=== PATIENT | female | born 1940 | race Caucasian/White ===

== ENCOUNTER → 2018-01-22 10:57 | Outpatient (CLI) | payer MEDICARE, OTHER, SELFPAY ==
[2018-01-22 11:39] LABS: Hemoglobin 13.5 g/dL (12.0-16.0); Mean Corpuscular HGB Conc 34.7 % (30-36); Mean Corpuscular Hemoglobin 31.2 PG (26-34); Mean Corpuscular Volume 89.9 fL (80-100); Platelet Count 207 X10^3/uL (150-400); Red Blood Cell Count 4.34 X10^6/uL (4.0-5.2); Red Cell Distribution Width 13.7 % (11.6-14.8); White Blood Cell Count 7.7 X10^3/uL (4.5-11.0)
[2018-01-22 11:54] LABS: Hemoglobin A1C% w Est Avg Glu 8.3 % (4.0-6.0)
[2018-01-22 11:55] LABS: Alanine Aminotransferase 31 IU/L (9-52); Albumin 4.2 g/dL (3.5-5.0); Albumin Globulin Ratio 1.1 (1.0-2.8); Alkaline Phosphatase 170 U/L (38-126); Aspartate Aminotransferase 39 IU/L (14-36); BUN Creatinine Ratio 28.9 (6-22); Bilirubin Total 0.8 mg/dL (0.2-1.3); Blood Urea Nitrogen 26 mg/dL (7-17); Carbon Dioxide 27 mmol/L (22-32); Chloride 106 mmol/L (98-107); Cholesterol 159 mg/dL (140-199); Estimated Glomerular Filt Rate > 60.0 mL/min (>60); Globulin 3.8 g/dL (1.7-4.1); Glucose 124 mg/dL (80-110); HDL Cholesterol 31 mg/dL (40-60); HEMOLYSIS < 15 (0-50); LDL Cholesterol Calculated 95 mg/dL (<100); Sodium 145 mmol/L (137-145); Triglycerides 165 mg/dL (35-150)
[2018-01-22 13:00] LABS: Thyroid Stimulating Hormone 6.43 uIU/mL (0.47-4.68)
[2018-01-22 14:03] LABS: Neutrophils Absolute Manual 4928 /uL (3000-5900); Total Cells Counted 100
[2018-01-22 14:05] LABS: RBC Morphology Normal Morphology
== END ==
PROVIDERS: Nurse Practitioner Gerontology; Family Provider Internal Medicine; PCP Internal Medicine; Visit Provider Internal Medicine
DX: E78.00 Pure hypercholesterolemia, unspecified (principal); E11.9 Type 2 diabetes mellitus without complications; E03.9 Hypothyroidism, unspecified; I10 Essential (primary) hypertension; C50.919 Malignant neoplasm of unspecified site of unspecified female breast
CPT/HCPCS: 36415; 80053; 80061; 83036; 84443; 85025

== ENCOUNTER → 2018-01-26 10:05 | Outpatient (CLI) | payer MEDICARE, OTHER, SELFPAY ==
--- NOTE | 2018-01-26 | DI.ECHO.S_ITS ---
[facility] +---------+ : : [address] : [address] : : : : [id number] : : : : Phone: [phone]+ Echocardiogram Report + + :Name: SOCORRO DALEY Study Date: 01/26/2018 Height: 66 in : :[facility] Weight: 212 lb : : Gender: Female BSA: 2.1 m2 : :: 1940 Age: 77 yrs BP: 112/82 mmHg: :Reason For Study: BREAST CANCER : : Performed By: Radha Prieto : :Referring: HERRERA KEITH : + + Interpretation Summary The ejection fraction is estimated to be 60-65%. There are no focal wall motion abnormalities. There is mild to moderate mitral regurgitation. Compared to the prior echo study, there has been no change in the severity of mitral regurgitation. There is mild aortic regurgitation. This is unchanged compared to the previous study. There is mild tricuspid regurgitation. Right ventricular systolic pressure is estimated to be 40 mmHg plus the clinically estimated CVP which cannot be estimated on this exam. Compared to the prior echo exam, there has been an increase in the severity of pulmonary hypertension. Procedure: A two-dimensional transthoracic echocardiogram with color flow and Doppler was performed. The study quality was technically adequate. Comparison is made with the echocardiogram of 10/21/2016. The patient was in sinus bradycardia with heart rates between 48-57 bpm during the exam. Left Ventricle: There is borderline concentric left ventricular hypertrophy. The left ventricle is normal in size. The ejection fraction is estimated to be 60-65%. There are no focal wall motion abnormalities. Right Ventricle: The right ventricle is normal in size and function. Atria: Both atria are normal in size. There is no Doppler evidence for an interatrial shunt. Mitral Valve: There is mild mitral annular calcification. There is a flat closure plane of the the mitral valve leaflets. There is mild to moderate mitral regurgitation. Compared to the prior echo study, there has been no change in the severity of mitral regurgitation. Aortic Valve: The aortic valve is trileaflet. The aortic valve opens well. There is mild aortic regurgitation. This is unchanged compared to the previous study. Tricuspid Valve: The tricuspid valve leaflets are thin and pliable. There is mild tricuspid regurgitation. Right ventricular systolic pressure is estimated to be 40 mmHg plus the clinically estimated CVP which cannot be estimated on this exam. Compared to the prior echo exam, there has been an increase in the severity of pulmonary hypertension. Pulmonic Valve: The pulmonic valve is normal in structure and function. There is a trace or physiologic amount of pulmonic regurgitation. Great Vessels: The aortic root is normal size. The ascending aorta is normal in size. The aortic arch is normal in size. The inferior vena cava was not visualized. Pericardium/ Pleura There is no pericardial effusion. MMode/2D Measurements & Calculations LVIDd: 5.0 cm LVOT diam: 2.0 cm LVIDs: 3.2 cm Ao root diam: 3.2 cm FS: 35.3 % Aortic Jxn: 2.1 cm EPSS: 0.27 cm asc Aorta Diam: 3.3 cm IVSd: 1.1 cm Ao Arch Diam (Prox Trans): 2.8 cm LVPWd: 1.1 cm LV sauceda. diameter/BSA (cm/m^2): 2.4 LV sys. diameter/BSA (cm/m^2): 1.6 LA A2 area: 17.9 cm2 RA long axis: 4.5 cm LA A4 area: 20.5 cm2 RA area: 13.1 cm2 LA length (vol): 4.8 cm RA vol: 32.9 ml LA vol: 65.2 ml RA : 16.1 ml/m2 LA vol index: 31.8 ml/m2 RVD1 (basal): 3.8 cm RVD2 (mid): 2.8 cm TAPSE: 2.5 cm Doppler Measurements & Calculations Ao V2 max: 145.2 cm/sec LVOT Max Ciro: 90.1 cm/sec Ao V2 mean: 103.3 cm/sec LV V1 max P.2 mmHg Ao max P.4 mmHg LV V1 VTI: 21.8 cm Ao mean P.7 mmHg ASHA(I,D): 1.8 cm2 Ao V2 VTI: 39.0 cm ASHA(V,D): 1.9 cm2 sev ratio: 0.56 ASHA indexed to BSA (cm^2/m^2): 0.85 AI P1/2t: 605.5 msec AI dec slope: 217.2 cm/sec2 MV E max ciro: 95.1 cm/sec TR max ciro: 315.9 cm/sec MV A max ciro: 77.8 cm/sec TR max P.9 mmHg MV E/A: 1.2 PA V2 max: 74.6 cm/sec Med Peak E' Ciro: 5.5 cm/sec PA V2 mean: 51.8 cm/sec E/E' med: 17.1 PA mean P.2 mmHg Lat Peak E' Ciro: 7.2 cm/sec PA Accel Time: 0.06 sec E/E' lat: 13.3 E/e' average: 15.2 MV dec time: 0.20 sec MV P1/2t: 56.8 msec MV P1/2t max ciro: 95.2 cm/sec MVA(P12t): 3.9 cm2 Reading Physician:03:15 PM
--- NOTE | 2018-01-26 | DI.RAD.S_ITS ---
This blank DEXA report has been sent in error by the PACS system. The correct and complete report will be forthcoming in 1-2 days. Thank you for your patience and understanding. Dictated by: Anna Brothers MD, PhD on 01/26/2018 at 11:36 Approved by: Anna Brothers MD, PhD on 01/26/2018 at 11:36
== END ==
PROVIDERS: Family Provider Internal Medicine; PCP Internal Medicine; Visit Provider Nurse Practitioner Gerontology
DX: Z79.899 Other long term (current) drug therapy (principal)
CPT/HCPCS: 77080; 93306

== ENCOUNTER 2018-02-04 12:45 | Oncology outpatient (ONC) | payer MEDICARE, OTHER, SELFPAY ==
--- NOTE | 2018-02-04 13:36 | P.PNONC_ITS ---
PN -Subjective Interval history: Diagnosis: 1. Breast cancer, T3 N0 ER positive. Previously treated with neoadjuvant Adriamycin and Cytoxan followed by docetaxel. She had a bilateral mastectomy with pathologic complete response. She also had postoperative chest wall radiation and has been on hormone therapy with anastrozole since 2002. 2. Renal cell carcinoma treated with nephrectomy in 2002. 3. 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 Interval history: The patient is a 77-year-old woman who returns today for follow-up. She is feeling well and has no specific complaints. She denies any new aches or pains. She has not noted any adenopathy. No fevers chills or sweats. No shortness of breath or cough. No GI complaints. She has not noted any changes on the chest wall or axilla. She continues to take anastrozole. She has been on it for about 15 years now. She is not having any hot flashes. She denies any musculoskeletal aches and pains. She would like to continue indefinitely. Her past medical history is otherwise notable for diabetes hypertension hyperlipidemia and hypothyroidism. She also has a history of primary sclerosing cholangitis. She has had some depression of the last couple years following the of her . Her medications include ursodiol, atenolol gabapentin anastrozole Lipitor insulin and levothyroxine Home Medications and Allergies Home Medications Medication Instructions Recorded Confirmed Type anastrozole 1 mg PO QDAY #0 10/24/16 History atorvastatin [Lipitor] 20 mg PO HS #0 10/24/16 History insulin aspart U-100 [Novolog #0 10/24/16 History Flexpen U-100 Insulin] insulin glargine [Lantus U-100 60 u SQ QDAY #0 10/24/16 History Insulin] levothyroxine [Levoxyl] 112 mcg PO #0 10/24/16 History Allergies Allergy/AdvReac Type Severity Reaction Status Date / Time venom-honey bee Allergy Unknown Unverified 08/20/17 13:10 [BEE VENOM (HONEY BEE)] Exam - Constitutional positive no acute distress, positive obese - Routine HEENT Exam Head: Present: normocephalic, atraumatic Eye: Present: EOMI, PERRL. Absent: conjunctival icterus, scleral injection ENT: Present: mucous membranes moist, oropharynx clear - Routine Neck Exam Present: supple. Absent: lymphadenopathy, thyromegaly - Routine Chest/Breast/Axilla Exam Chest wall exam standard: Absent: tenderness, mass Breast: Present: right mastectomy, left mastectomy Axillae: Absent: lymphadenopathy - Routine Respiratory Exam Present: Clear to auscultation bilaterally. Absent: rales, wheezes - Routine Cardiovascular Exam Present: RRR, S1, S2. Absent: murmur - Routine Abdominal Exam Present: soft, normoactive bowel sounds. Absent: tenderness, organomegaly, mass - Routine Extremities Exam Absent: cyanosis, clubbing, edema - Routine Back/Spine Exam Back/Spine: Absent: paraspinal tenderness, vertebral tenderness - Routine Skin Exam Present: intact. Absent: petechiae, rash - Routine Neurological Exam Present: alert, oriented X3 - Routine Psychiatric Exam Present: normal affect, normal thought process Results - Labs A CBC was within normal limits. Metabolic panel showed a normal creatinine at 0.9. Alkaline phosphatase was 170 A AST was slightly elevated at 39. TSH was slightly high at 6.4 in her hemoglobin A1c was 8.3. A DEXA scan showed normal bone density although decreased compared to 2017. Echocardiogram showed a normal ejection fraction. Assessment and Plan (1) Breast cancer Problem details: 77-year-old woman with a history of a breast, kidney and oral cancers. She has about 15 years out from her breast and kidney cancers with no evidence of recurrence. She likewise has no evidence of recurrence of her oral cancer. She will continue to follow with her ENT. With regards to her breast cancer, review data suggesting that 7 years of an AI I was not significantly better than 10 years. We have no data regarding 15 year treatments. Never the less she feels like she is not being harmed by the hormone therapy and would prefer to continue even in the absence of evidence for benefit. She will continue with her anastrozole. She will return to clinic in 1 year for follow- up. Current visit: Yes Status: Acute
== END 2018-02-05 12:00 ==
PROVIDERS: Family Provider Internal Medicine; PCP Internal Medicine
DX: C50.919 Malignant neoplasm of unspecified site of unspecified female breast (principal); Z79.811 Long term (current) use of aromatase inhibitors; Z85.819 Personal history of malignant neoplasm of unspecified site of lip, oral cavity, and pharynx; Z85.528 Personal history of other malignant neoplasm of kidney
CPT/HCPCS: 99214

== ENCOUNTER 2019-04-16 07:24 | Emergency (ER) | payer MEDICARE, OTHER, SELFPAY ==
[2019-04-16 07:25] VITALS: BP 143/75; PULSE 64; RESP 18; TEMP 36.5; O2SAT 97; BMI 35.2
--- NOTE | 2019-04-16 07:31 | DI.RAD.S_ITS ---
PROCEDURE: XR WRIST LT MIN 3V INDICATIONS: Fell, landed on wrist. TECHNIQUE: 4 views of the wrist were acquired. COMPARISON: None. FINDINGS: Bones: No fractures or dislocations but there is moderate to moderately severe degenerative osteoarthritis at the base of the first metacarpal and at the radiocarpal joint. This produces osteophytic spurring the obscured visualization of a nondisplaced fracture. No definite fracture found, however.. No suspicious bony lesions. Scaphoid view: No trauma. Soft tissues: No suspicious soft tissue calcifications. IMPRESSION: No trauma found. Degenerative changes as discussed above. Dictated by: aMrio Dacosta M.D. on 04/16/2019 at 8:22 Approved by: Mario Dacosta M.D. on 04/16/2019 at 8:23
--- NOTE | 2019-04-16 07:58 | DI.RAD.S_ITS ---
PROCEDURE: XR FOREARM RT 2V INDICATIONS: fall/proximal forearm pain TECHNIQUE: 2 views of the forearm were acquired. COMPARISON: [facility], CR, XR WRIST LT MIN 3V, 04/16/2019, 7:55. FINDINGS: Bones: No fractures or dislocations. No suspicious bony lesions. Degenerative osteoarthritis at the radiocarpal joint is moderate to moderately severe but no trauma is found Soft tissues: No suspicious soft tissue calcifications or masses. IMPRESSION: Radiocarpal joint moderate to moderately severe degenerative osteoarthritis but no trauma found. Dictated by: Mario Dacosta M.D. on 04/16/2019 at 8:20 Approved by: Mario Dacosta M.D. on 04/16/2019 at 8:21
--- NOTE | 2019-04-16 08:11 | ED.UPPEXIN ---
HPI - Extremity Injury (Upper) General Chief Complaint: Extremity Injury, Upper Stated Complaint: fell last night,hurt left wrist Time Seen by Provider: 04/16/19 07:42 Source: patient Mode of arrival: Ambulatory Limitations: no limitations History of Present Illness HPI narrative: Patient comes emergency department complaining of left wrist and forearm pain after tripping and falling and landing on her outstretched arm on the pavement yesterday evening. Patient states that she sustained bruises to her right hip and knee, but otherwise, was not injured. She has been able to ambulate on the right lower extremity without difficulty. Patient denies prior history of injury to the left wrist. She states it hurts to move, but should come in right away because she was hoping it is just bruised. She denies neck pain. She states that when she fell, her head hit the ground, mainly making contact with her glasses. She states that she has not had any pain and did not hit her head very hard. She has not noticed any bruising or swelling. no visual changes or neck pain. patient denies rib pain. No back pain. no abdominal pain. No other complaints at this time. Related Data Home Medications Medication Instructions Recorded Confirmed anastrozole 1 mg PO QDAY #0 10/24/16 02/04/18 atorvastatin [Lipitor] 20 mg PO HS #0 10/24/16 02/04/18 insulin aspart U-100 [Novolog #0 10/24/16 Flexpen U-100 Insulin] insulin glargine [Lantus U-100 60 u SQ QDAY #0 10/24/16 Insulin] levothyroxine [Levoxyl] 112 mcg PO DAILY #0 10/24/16 02/04/18 Allergies Allergy/AdvReac Type Severity Reaction Status Date / Time venom-honey bee Allergy Unknown Verified 02/04/18 13:51 [BEE VENOM (HONEY BEE)] Review of Systems Constitutional Constitutional: Denies chills, Denies fatigue, Denies fever(s), Denies frequent falls, Denies lethargy and Denies weakness Eyes Eyes: Denies change in vision, Denies eye discharge, Denies irritation and Denies loss of vision ENT Ears, Nose, Mouth, and Throat: Denies change in voice, Denies dizziness, Denies neck pain, Denies sore throat and Denies throat swelling Cardiovascular Cardiovascular: Denies chest pain, Denies irregular heart rhythm, Denies lightheadedness, Denies palpitations, Denies dyspnea, Denies dyspnea on exertion and Denies orthopnea Respiratory Respiratory: Denies cough, Denies dyspnea, Denies dyspnea on exertion and Denies wheezing Gastrointestinal Gastrointestinal: Denies abdominal pain, Denies change in bowel habits, Denies diarrhea, Denies nausea and Denies vomiting Genitourinary Genitourinary: Denies hematuria, Denies flank pain, Denies urinary incontinence and Denies urinary urgency Musculoskeletal Musculoskeletal: Denies back pain, Denies muscle weakness, Denies neck pain, Denies numbness and Denies tingling Comments: Wrist pain Integumentary/Breasts Skin/Breast: Denies pruritus, Denies erythema, Denies rash and Denies wounds Neurologic Neurologic: Denies behavioral changes, Denies confusion, Denies dizziness, Denies frequent falls, Denies loss of vision, Denies numbness, Denies tingling and Denies weakness Psychiatric Psychiatric: Denies anxiety, Denies behavioral changes, Denies confusion, Denies depression, Denies homicidal ideation and Denies suicidal ideation Endocrine Endocrine: Denies fatigue, Denies flushing and Denies palpitations Hematologic/Lymphatic Hematologic/Lymphatic: Denies easy bruising Allergic/Immunologic Allergic/Immunologic: Denies urticaria, Denies throat swelling and Denies wheezing Patient History Medical History Breast cancer (Acute) Diabetes (Acute) HTN (hypertension) (Acute) Hyperlipidemia (Acute) Hypothyroidism (Acute) Oral cancer (Acute) Renal cell carcinoma (Acute) Surgical History History of nephrectomy (Acute) Social History Smoking Status: Former smoker Smoking Status: Former smoker alcohol intake frequency: holidays/special occasions only Substance Use Type: does not use Exam Initial Vital Signs Initial Vital Signs: Vital Signs Temperature 97.7 F 04/16/19 07:25 Pulse Rate 64 04/16/19 07:25 Respiratory Rate 18 04/16/19 07:25 Blood Pressure 143/75 H 04/16/19 07:25 Pulse Oximetry 97 04/16/19 07:25 Const General: cooperative and well developed Nutritional Appearance: well nourished Orientation: alert, awake, oriented x3 and not confused [facility] Head: normocephalic and atraumatic Ears: external ears normal Nose: external nose normal and No nasal discharge Face and sinus: face symmetric and No dry mucous membranes Mouth: oral mucosae normal and moist mucous membranes Teeth and gingiva: dentition normal Eyes General: appearance normal, both eyes and all related structures Eyelids: eyelids normal Conjunctivae: conjunctivae normal Sclera: sclerae normal Pupils: PERRL EOM: EOM intact bilaterally Neck Neck: normal visual inspection, trachea midline, No lymphadenopathy, No midline deformity and No JVD Lymphatic: No lymphedema Chest Chest: normal inspection of the chest Resp Effort & Inspection: normal respiratory effort, able to speak in complete sentences, no respiratory distress and no use of accessory muscles Auscultation: clear to auscultation bilaterally, no rales, no rhonchi and no wheezes Cardio Rate: regular rate Rhythm: regular rhythm Heart Sounds: no click, no gallops, no murmurs and no rubs Pulses: normal peripheral pulses Back/Spine/Pelvis Back: No CVA tenderness Cervical Spine: cervical ROM normal and No pain with cervical ROM Thoracic/Lumbar Spine: thoracic and lumbar spine normal to inspection Skin General: no rashes or lesions noted, No jaundice and No petechiae Other: Contusion right knee. Neuro General: alert, oriented x3, gait normal and no focal motor deficits Speech: speech normal Extrem General: full ROM, no clubbing, cyanosis or edema, no pedal edema and no calf tenderness Psych Appearance: well kempt Mental Status: mental status grossly normal Attitude: cooperative Thought Content: normal and suicidality Judgment: judgment good Course Course Course Narrative: Patient was worked up with x-rays of the left wrist and forearm, which were found to be negative by Radiology reading. She was placed in a Velcro wrist splint. We discussed that she may use [id number] ibuprofen and Tylenol as needed for discomfort. We have discussed home management of symptoms, as well as the usual indications for return. Orders Ordered: ED Orders 04/16/19 07:31 XR wrist LT min 3V Stat 04/16/19 07:58 XR forearm LT 2V Stat Vital Signs Vital signs: Vital Signs - 8 hr 04/16/19 07:25 Temperature 97.7 F Pulse Rate 64 Respiratory Rate 18 Blood Pressure 143/75 H Pulse Oximetry 97 MDM - Extremity Injury (Upper) Medical Records Attestation: I reviewed the patient's medical records. Imaging Data Forearm x-ray: Radiologist's impression: PROCEDURE: XR FOREARM RT 2V INDICATIONS: fall/proximal forearm pain TECHNIQUE: 2 views of the forearm were acquired. COMPARISON: [facility], , XR WRIST LT MIN 3V, 04/16/2019, 7:55. FINDINGS: Bones: No fractures or dislocations. No suspicious bony lesions. Degenerative osteoarthritis at the radiocarpal joint is moderate to moderately severe but no trauma is found Soft tissues: No suspicious soft tissue calcifications or masses. IMPRESSION: Radiocarpal joint moderate to moderately severe degenerative osteoarthritis but no trauma found. Dictated by: Mario Dacosta M.D. on 04/16/2019 at 8:20 Approved by: Mario Dacosta M.D. on 04/16/2019 at 8:21 Wrist x-ray: Radiologist's impression: PROCEDURE: XR WRIST LT MIN 3V INDICATIONS: Fell, landed on wrist. TECHNIQUE: 4 views of the wrist were acquired. COMPARISON: None. FINDINGS: Bones: No fractures or dislocations but there is moderate to moderately severe degenerative osteoarthritis at the base of the first metacarpal and at the radiocarpal joint. This produces osteophytic spurring the obscured visualization of a nondisplaced fracture. No definite fracture found, however.. No suspicious bony lesions. Scaphoid view: No trauma. Soft tissues: No suspicious soft tissue calcifications. IMPRESSION: No trauma found. Degenerative changes as discussed above. Dictated by: Mario Dacosta M.D. on 04/16/2019 at 8:22 Approved by: Mario Dacosta M.D. on 04/16/2019 at 8:23 Discharge Plan Departure Patient Disposition: Home Clinical Impression: Sprain and strain of wrist Instructions: DI for Wrist Sprain Activity Restrictions/Additional Instructions: Your x-rays were negative--you did not break your arm. You may wear the Velcro splint, as needed, until your wrist is feeling better. You may take ibuprofen and/or Tylenol for the discomfort. Prescriptions: No Action anastrozole 1 MG tablet 1 mg PO QDAY Qty: 0 RF: 0 atorvastatin [Lipitor] 20 MG tablet 20 mg PO HS Qty: 0 RF: 0 insulin glargine [Lantus U-100 Insulin] 100 UNIT/1 ML solution 60 u SQ QDAY Qty: 0 RF: 0 levothyroxine [Levoxyl] 112 MCG tablet 112 mcg PO DAILY Qty: 0 RF: 0 insulin aspart U-100 [Novolog Flexpen U-100 Insulin] 100 UNIT/1 ML insulin pen Qty: 0 RF: 0 Referrals: Tristan Esposito MD [Primary Care Provider] -
[2019-04-16 08:43] VITALS: BP 130/70; PULSE 60; RESP 16; O2SAT 98
== END 2019-04-16 08:43 | disposition home or self-care (01) ==
PROVIDERS: Emergency Provider Emergency Medicine; Family Provider Internal Medicine; PCP Internal Medicine
DX: S63.502A Unspecified sprain of left wrist, initial encounter (principal); S66.912A Strain of unspecified muscle, fascia and tendon at wrist and hand level, left hand, initial encounter; S59.912A Unspecified injury of left forearm, initial encounter; W01.0XXA Fall on same level from slipping, tripping and stumbling without subsequent striking against object, initial encounter
CPT/HCPCS: 29260; 73090; 73110; 99282; 99283

== ENCOUNTER → 2019-10-07 15:54 | Outpatient (CLI) | payer MEDICARE, OTHER, SELFPAY ==
[2019-10-07 17:24] LABS: Hemoglobin A1C% w Est Avg Glu 7.4 % (4.0-6.0)
== END ==
PROVIDERS: Family Provider Internal Medicine; PCP Internal Medicine; Referring Provider Internal Medicine; Visit Provider Internal Medicine
DX: E11.9 Type 2 diabetes mellitus without complications (principal)
CPT/HCPCS: 36415; 83036

== ENCOUNTER → 2020-06-07 08:18 | Outpatient (CLI) | payer MEDICARE, OTHER, SELFPAY ==
[2020-06-07] MEDS: COVID-19 VACC #1, MRNA(MOD) 100 MCG/0.5 ML VIAL IM (08:28)
== END ==
PROVIDERS: Family Provider Internal Medicine; PCP Internal Medicine; Visit Provider Internal Medicine
DX: Z23 Encounter for immunization (principal)
CPT/HCPCS: 0011A; 91301

== ENCOUNTER → 2020-07-05 08:19 | Outpatient (CLI) | payer MEDICARE, OTHER, SELFPAY ==
[2020-07-05] MEDS: COVID-19 VACC #2, MRNA(MOD) 100 MCG/0.5 ML VIAL IM (08:28)
== END ==
PROVIDERS: Family Provider Internal Medicine; PCP Internal Medicine; Visit Provider Internal Medicine
DX: Z23 Encounter for immunization (principal)
CPT/HCPCS: 0012A; 91301

== ENCOUNTER → 2021-03-29 12:12 | Outpatient (CLI) | payer MEDICARE, OTHER, SELFPAY ==
[2021-03-29 12:46] LABS: COVID19 -Nasal RAPID Negative (Negative)
== END ==
PROVIDERS: Family Provider Internal Medicine; PCP Internal Medicine; Visit Provider Physician Assistant
DX: Z20.822 Contact with and (suspected) exposure to COVID-19 (principal)
CPT/HCPCS: 87635

== ENCOUNTER → 2021-09-12 10:07 | Outpatient (CLI) | payer MEDICARE, OTHER, SELFPAY ==
[2021-09-12 11:38] LABS: Hematocrit 38.2 % (36-46); Hemoglobin 12.8 g/dL (12.0-16.0); Mean Corpuscular HGB Conc 33.6 % (30-36); Mean Corpuscular Hemoglobin 30.5 PG (26-34); Mean Corpuscular Volume 90.9 fL (80-100); Platelet Count 190 X10^3/uL (150-400); Red Cell Distribution Width 14.3 % (11.6-14.8); White Blood Cell Count 8.4 X10^3/uL (4.5-11.0)
[2021-09-12 11:50] LABS: Hemoglobin A1C% w Est Avg Glu 10.4 % (4.0-6.0)
[2021-09-12 12:10] LABS: Alanine Aminotransferase 25 IU/L (<35); Albumin 4.3 g/dL (3.5-5.0); Albumin Globulin Ratio 1.1 (1.0-2.8); Alkaline Phosphatase 175 U/L (38-126); Aspartate Aminotransferase 39 IU/L (14-36); BUN Creatinine Ratio 22.4 (6-22); Bilirubin Total 0.6 mg/dL (0.2-1.3); Blood Urea Nitrogen 32 mg/dL (7-17); Calcium 8.9 mg/dL (8.4-10.2); Carbon Dioxide 27 mmol/L (22-32); Chloride 103 mmol/L (98-107); Cholesterol 175 mg/dL (140-199); Estimated Glomerular Filt Rate 37 mL/min (>60); Globulin 3.9 g/dL (1.7-4.1); Glucose 224 mg/dL (80-110); HDL Cholesterol 31 mg/dL (40-60); HEMOLYSIS < 15 (0-50); LDL Cholesterol Calculated 96 mg/dL (<100); Potassium 4.5 mmol/L (3.4-5.1); Sodium 138 mmol/L (137-145); Total Protein 8.2 g/dL (6.3-8.2); Triglycerides 239 mg/dL (35-150)
[2021-09-12 12:37] LABS: TSH w/ Reflex to FT4 9.29 uIU/mL (0.47-4.68)
[2021-09-12 13:07] LABS: Free T4, Direct Thyroxine 1.27 ng/dL (0.78-2.19)
== END ==
PROVIDERS: Family Provider Internal Medicine; PCP Internal Medicine; Referring Provider Internal Medicine; Visit Provider Internal Medicine
DX: E03.9 Hypothyroidism, unspecified (principal); E11.42 Type 2 diabetes mellitus with diabetic polyneuropathy; E78.2 Mixed hyperlipidemia; I10 Essential (primary) hypertension
CPT/HCPCS: 36415; 80053; 80061; 83036; 84439; 84443; 85027

== ENCOUNTER → 2021-09-13 15:28 | Outpatient (CLI) | payer MEDICARE, OTHER, SELFPAY ==
[2021-09-13 19:08] LABS: Creatinine Urine Random 110.8 mg/dL; Microalbumi Creatinin Ratio Ur 50.5 ug/mg CR (<30); Microalbumin Urine Random 5.6 mg/dL (0-1.6)
== END ==
PROVIDERS: Family Provider Internal Medicine; PCP Internal Medicine; Referring Provider Internal Medicine; Visit Provider Internal Medicine
DX: E03.9 Hypothyroidism, unspecified (principal); E78.2 Mixed hyperlipidemia; I10 Essential (primary) hypertension; E11.42 Type 2 diabetes mellitus with diabetic polyneuropathy
CPT/HCPCS: 82043; 82570

== ENCOUNTER → 2022-04-02 09:34 | Outpatient (CLI) | payer MEDICARE, OTHER, SELFPAY ==
--- NOTE | 2022-04-16 17:10 | DIAB.MNT ---
Initial Diabetes Medical Nutrition Therapy Assessment Name: Martha Calabrese Date: 04/02/22 Time: [id number] Dx: Type II Diabetes Provider: Vaibhav Martha presents for initial visit regarding T2DM. Endorses PMH of DM for 15-20 years. FH of DM with her mother. 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 States her college education is in food and nutrition. Reports she often does not like to cook for herself since her passed. Endorses frequent urination and dry mouth. States she is very interested in CGM. Has a friend with one. Though reports she often forgets to take her meal time insulin. Diet Recall: B: nothing or cereal with 1c almond milk (1c cheerios or raisinbran or oatmeal) 1p: 1.5c homemade soup with orange and banana OR fast food chicken sandwich without bun with frozen coke or frappe 5-6p: eat out or cheese and crackers or salad 730-9p: 4-5c popcorn + caramel corn Beverages: water 12oz x 5, SF ICE beverage, when eating out orders soda Eating out: once per week Anthropometrics: Ht: 65 Wt: 218.5# last EMR wt in 09/2021 Physical Activity: Water walking 2x per week over the last couple months Self-Monitoring Blood Glucose: Does not check. States she does not want to know how high they are. Diabetes Medications: 80u Glargine 5u Aspart for Breakfast and lunch Pertinent Labs: 09/2021 HgA1c 10.4% Past Medical History: (Last Updated 03/11/22 @ 07:42 by Tristan Esposito MD) Acquired hypothyroidism Breast cancer Chronic gout, unspecified, without tophus (tophi) Depression, recurrent Do not resuscitate Essential hypertension History of colon polyps Junctional bradycardia Medicare annual wellness visit, initial Mixed hyperlipidemia Obesity (BMI 30-39.9) Oral cancer Polyneuropathy, unspecified Primary osteoarthritis of left knee Renal cell carcinoma Stage 3b chronic kidney disease (CKD) Type 2 diabetes mellitus with polyneuropathy Nutrition Rx: Carbohydrates: Daily:130-165 Meal:30-45g Snack:15-30g Nutrition Diagnosis: - Excessive CHO intake r/t eating out beverage choices aeb diet recall - suboptimal physical activity r/t stage of change aeb pt report - Self monitoring deficit r/t diabetes distress regarding SMBG aeb pt report Intervention: This participant was very receptive. Provided appropriate educational handouts. Discussed the following topics: Completed intake assessment. Discussed barriers to care. SMBG goal to determine trends and patters Plate Method, impact of macronutrients on blood sugar, meal timing, carbohydrate counting, pairing macronutrients CGM process and apps s/s of hyperglycemia strategies to take mealtime insulin Role of physical activity and following provider guidelines for safety Created SMART goals for patient self-care and success. 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 will provide ADS form to provider. Seems a CGm has been ordered through pharmacy. Will offer pt CGM trial next visit prn. Roxy Almeida RDN, [facility] Certified Diabetes Care and Production Designer P: [phone] Thank you for this referral
== END ==
PROVIDERS: Family Provider Internal Medicine; PCP Internal Medicine; Referring Provider Internal Medicine; Visit Provider Internal Medicine
DX: E11.9 Type 2 diabetes mellitus without complications (principal); Z79.84 Long term (current) use of oral hypoglycemic drugs; Z71.3 Dietary counseling and surveillance
CPT/HCPCS: 97802

== ENCOUNTER → 2022-04-02 10:43 | Outpatient (CLI) | payer MEDICARE, OTHER, SELFPAY | PROVIDERS: Family Provider Internal Medicine; PCP Internal Medicine; Referring Provider Internal Medicine; Visit Provider Internal Medicine | DX: E11.42 Type 2 diabetes mellitus with diabetic polyneuropathy (principal) | CPT/HCPCS: 36415; 83036 ==

== ENCOUNTER → 2022-07-09 16:03 | Outpatient (CLI) | payer MEDICARE, OTHER, SELFPAY ==
[2022-07-09 16:49] LABS: Hemoglobin 12.2 g/dL (12.0-16.0); Mean Corpuscular Hemoglobin 29.9 PG (26-34); Mean Corpuscular Volume 90.6 fL (80-100); Platelet Count 194 X10^3/uL (150-400); Red Blood Cell Count 4.09 X10^6/uL (4.0-5.2); Red Cell Distribution Width 13.5 % (11.6-14.8); White Blood Cell Count 7.4 X10^3/uL (4.5-11.0)
[2022-07-09 17:29] LABS: Alanine Aminotransferase 16 IU/L (<35); Albumin 3.7 g/dL (3.5-5.0); Alkaline Phosphatase 176 U/L (38-126); Aspartate Aminotransferase 21 IU/L (14-36); BUN Creatinine Ratio 24.4 (6-22); Bilirubin Total 0.5 mg/dL (0.2-1.3); Blood Urea Nitrogen 30 mg/dL (7-17); Calcium 9.1 mg/dL (8.4-10.2); Carbon Dioxide 27 mmol/L (22-32); Chloride 100 mmol/L (98-107); Cholesterol 165 mg/dL (140-199); Estimated Glomerular Filt Rate 44 mL/min (>60); Globulin 3.6 g/dL (1.7-4.1); Glucose 172 mg/dL (80-110); HDL Cholesterol 37 mg/dL (40-60); HEMOLYSIS < 15 (0-50); LDL Cholesterol Calculated 62 mg/dL (<100); Potassium 4.8 mmol/L (3.4-5.1); Sodium 137 mmol/L (137-145); Total Protein 7.3 g/dL (6.3-8.2); Triglycerides 331 mg/dL (35-150)
[2022-07-09 18:03] LABS: Vitamin D 25 Hydroxy (D3) < 12.8 ng/mL (30.0-100.0)
[2022-07-09 18:30] LABS: Free T4, Direct Thyroxine 0.88 ng/dL (0.78-2.19)
[2022-07-11 18:36] LABS: Calcium 9.4 mg/dL (8.7-10.3); Parathyroid Hormone, Intact 72 pg/mL (15-65)
== END ==
PROVIDERS: Family Provider Internal Medicine; PCP Internal Medicine; Referring Provider Internal Medicine; Visit Provider Internal Medicine
DX: E03.9 Hypothyroidism, unspecified (principal); E11.42 Type 2 diabetes mellitus with diabetic polyneuropathy; N18.32 Chronic kidney disease, stage 3b; E78.2 Mixed hyperlipidemia; I10 Essential (primary) hypertension; E55.9 Vitamin D deficiency, unspecified
CPT/HCPCS: 36415; 80053; 80061; 82306; 82310; 83036; 83970; 84439; 84443; 85027

== ENCOUNTER → 2022-11-29 16:29 | Outpatient (CLI) | payer MEDICARE, OTHER, SELFPAY ==
[2022-11-29 18:21] LABS: BUN Creatinine Ratio 18.9 (6-22); Blood Urea Nitrogen 24 mg/dL (7-17); Calcium 9.6 mg/dL (8.4-10.2); Carbon Dioxide 30 mmol/L (22-32); Chloride 102 mmol/L (98-107); Estimated Glomerular Filt Rate 42 mL/min (>60); Glucose 119 mg/dL (80-110); HEMOLYSIS < 15 (0-50); Potassium 4.7 mmol/L (3.4-5.1); Sodium 139 mmol/L (137-145)
[2022-11-29 18:39] LABS: Vitamin D 25 Hydroxy (D3) 27.3 ng/mL (30.0-100.0)
[2022-11-29 18:53] LABS: TSH w/ Reflex to FT4 7.14 uIU/mL (0.47-4.68)
[2022-11-29 20:08] LABS: Free T4, Direct Thyroxine 0.96 ng/dL (0.78-2.19)
== END ==
PROVIDERS: Family Provider Internal Medicine; PCP Internal Medicine; Referring Provider Internal Medicine; Visit Provider Internal Medicine
DX: I10 Essential (primary) hypertension (principal); E55.9 Vitamin D deficiency, unspecified; E03.9 Hypothyroidism, unspecified
CPT/HCPCS: 36415; 80048; 82306; 84439; 84443

== ENCOUNTER → 2024-03-30 16:15 | Outpatient (CLI) | payer MEDICARE, OTHER, SELFPAY ==
[2024-03-30 17:05] LABS: Hematocrit 41.1 % (36-46); Hemoglobin 13.4 g/dL (12.0-16.0); Mean Corpuscular HGB Conc 32.7 % (30-36); Mean Corpuscular Hemoglobin 29.9 PG (26-34); Mean Corpuscular Volume 91.7 fL (80-100); Platelet Count 216 X10^3/uL (150-400); Red Blood Cell Count 4.49 X10^6/uL (4.0-5.2); Red Cell Distribution Width 13.4 % (11.6-14.8); White Blood Cell Count 8.5 X10^3/uL (4.5-11.0)
[2024-03-30 17:17] LABS: Hemoglobin A1C% w Est Avg Glu 8.5 % (4.0-6.0)
[2024-03-30 17:29] LABS: Aspartate Aminotransferase 25 IU/L (14-36); BUN Creatinine Ratio 23.3 (6-22); Blood Urea Nitrogen 31 mg/dL (7-17); Calcium 9.6 mg/dL (8.4-10.2); Carbon Dioxide 29 mmol/L (22-32); Chloride 105 mmol/L (98-107); Cholesterol 188 mg/dL (140-199); Estimated Glomerular Filt Rate 39 mL/min (>60); Glucose 95 mg/dL (80-110); HDL Cholesterol 39 mg/dL (40-60); HEMOLYSIS < 15 (0-50); LDL Cholesterol Calculated 110 mg/dL (<100); Potassium 4.5 mmol/L (3.4-5.1); Sodium 140 mmol/L (137-145); Triglycerides 193 mg/dL (35-150)
[2024-03-30 18:02] LABS: TSH w/ Reflex to FT4 5.66 uIU/mL (0.47-4.68)
[2024-03-30 18:28] LABS: Free T4, Direct Thyroxine 0.76 ng/dL (0.78-2.19)
== END ==
PROVIDERS: Family Provider Internal Medicine; PCP Internal Medicine; Referring Provider Internal Medicine; Visit Provider Internal Medicine
DX: E11.42 Type 2 diabetes mellitus with diabetic polyneuropathy (principal); E03.9 Hypothyroidism, unspecified; E78.2 Mixed hyperlipidemia; N18.32 Chronic kidney disease, stage 3b; I12.9 Hypertensive chronic kidney disease with stage 1 through stage 4 chronic kidney disease, or unspecified chronic kidney disease
CPT/HCPCS: 36415; 80048; 80061; 83036; 84439; 84443; 84450; 85027

== ENCOUNTER 2024-08-30 15:13 | Emergency (ER) | payer MEDICARE, OTHER, SELFPAY ==
[2024-08-30 15:17] VITALS: BP 165/89; PULSE 99; RESP 18; TEMP 36.6; O2SAT 95; BMI 36.0
--- NOTE | 2024-08-30 15:25 | DI.RAD.S_ITS ---
PROCEDURE: XR CHEST 1V INDICATIONS: chest pain TECHNIQUE: One view of the chest was acquired. COMPARISON: None. FINDINGS: Surgical changes and devices: Left chest wall pacemaker leads are in the region of right atrium and right ventricle. Surgical clips are seen in bilateral axilla. Lungs and pleura: Lungs are clear. No pleural effusions or pneumothorax. Mediastinum: Aortic arch calcifications are seen. Heart size is normal. Bones and chest wall: No suspicious bony lesions. Overlying soft tissues appear unremarkable. IMPRESSION: No acute cardiopulmonary pathology. Dictated by: Giorgi Root M.D. on 08/30/2024 at 15:52 Approved by: Giorgi Root M.D. on 08/30/2024 at 15:53
--- NOTE | 2024-08-30 15:51 | EKG_ITS ---
[address] [address] Test Date: 2024-08-30 Pat Name: Martha Calabrese Department: Room: Gender: Female Computer Service Technician: PEBBLES : 1940 Requested By: Order Number: [id number] Reading MD: Thomas Grover MD Measurements Intervals [place] Rate: 62 P: 66 TN: 260 QRS: -53 QRSD: 126 T: -5 QT: 468 QTc: 475 Interpretive Statements Atrial-paced rhythm with prolonged AV conduction Right bundle branch block Left anterior fascicular block Bifascicular block Minimal voltage criteria for LVH, may be normal variant ( R in aVL ) NO PRIOR TRACING Electronically Signed On 08-30-2024 16:11:09 PDT by Thomas Grover MD
[2024-08-30 15:59] LABS: Add Manual Diff / Slide Review NO; Basophils Absolute Auto 0 /uL (0-100); Basophils Percent Auto 0.7 % (0-2); Eosinophils Absolute Auto 100 /uL (0-450); Eosinophils Percent Auto 2.1 % (2-4); Hematocrit 41.1 % (36-46); Hemoglobin 13.6 g/dL (12.0-16.0); Lymphocytes Absolute Auto 1400 /uL (1100-4500); Lymphocytes Percent Auto 21.6 % (25-40); Mean Corpuscular HGB Conc 33.1 % (30-36); Mean Corpuscular Hemoglobin 29.3 PG (26-34); Mean Corpuscular Volume 88.4 fL (80-100); Monocytes Absolute Auto 500 /uL (0-900); Monocytes Percent Auto 7.7 % (3-14); Neutrophils Absolute Auto 4500 /uL (1500-7000); Neutrophils Percent Auto 67.9 % (50-75); Platelet Count 188 X10^3/uL (150-400); Red Blood Cell Count 4.65 X10^6/uL (4.0-5.2); Red Cell Distribution Width 14.4 % (11.6-14.8); White Blood Cell Count 6.6 X10^3/uL (4.5-11.0)
[2024-08-30 16:09] LABS: Prothrombin Time 11.2 SECONDS (9.4-12.5)
[2024-08-30 16:12] LABS: PTT Partial Thromboplastin Tim 38 SECONDS (25.1-36.5)
[2024-08-30 16:17] LABS: Alanine Aminotransferase 22 IU/L (<35); Albumin 4.2 g/dL (3.5-5.0); Alkaline Phosphatase 136 U/L (38-126); Aspartate Aminotransferase 34 IU/L (14-36); BUN Creatinine Ratio 24.4 (6-22); Bilirubin Total 0.9 mg/dL (0.2-1.3); Blood Urea Nitrogen 31 mg/dL (7-17); Calcium 9.6 mg/dL (8.4-10.2); Carbon Dioxide 22 mmol/L (22-32); Chloride 103 mmol/L (98-107); Creatine Kinase 56 U/L (30-135); Estimated Glomerular Filt Rate 42 mL/min (>60); Globulin 4.3 g/dL (1.7-4.1); Glucose 217 mg/dL (80-110); HEMOLYSIS 87 (0-50); Lipase 90 U/L (23-300); Magnesium 1.8 mg/dL (1.6-2.3); Potassium 4.5 mmol/L (3.4-5.1); Sodium 137 mmol/L (137-145); Total Protein 8.5 g/dL (6.3-8.2)
[2024-08-30 16:28] LABS: NT-proBNP (BNP-Adult 18+) 644 pg/mL (<450); Troponin I 0.012 ng/mL (0.01-0.034)
[2024-08-30 16:34] VITALS: BP 168/69; PULSE 74; RESP 19; O2SAT 98
--- NOTE | 2024-08-30 16:44 | ED.GENADULT ---
HPI - General Adult <Erasmo Reeves PA-C - Last Filed: 08/31/24 14:51> General Chief complaint: Hypertension Stated complaint: High BP 191/110, vomiting last night Time Seen by Provider: 08/30/24 16:30 Source: patient and family Mode of arrival: Ambulatory History of Present Illness HPI narrative: 83-year-old female with past medical history hypertension, type 2 diabetes, hyperlipidemia, hypothyroidism, CKD, status post nephrectomy from renal cell carcinoma, depression, osteoarthritis presents to the ED status post a elevated blood pressure reading taken at home. Patient ate some uncooked meat as part of Easter lunch, vomited a few times yesterday night. Patient's daughter took her blood pressure at home with her (daughter's) cuff which read at 191/110. Patient's daughter brought her mother in for further evaluation. Patient denies fever, chills, chest pain, shortness of breath, abdominal pain, lightheadedness, dizziness, syncope. Patient endorses that she is not vomiting anymore and and is not experiencing any symptoms at this time. Patient has been prescribed atenolol with chlorthalidone for hypertension, which she states she has stopped taking for the last several weeks since it made her have to go to the bathroom often to urinate. Related Data Previous Rx's Medication Instructions Recorded blood-glucose transmitter (Dexcom #1 ea 03/11/22 G6 Transmitter device) blood-glucose,business line controller,cont #1 ea 03/11/22 (Dexcom G6 Nuclear Waste Process Operator) insulin aspart U-100 100 unit/mL 13 unit (0.13 mL) SUBCUT DAILY #45 06/06/22 (3 mL) subcutaneous pen (Novolog mL FlexPen U-100 Insulin aspart) blood-glucose sensor (Dexcom G6 #9 ea 07/02/22 Sensor device) anastrozole 1 mg tablet 1 mg PO DAILY #90 tabs 11/06/23 atenolol 50 mg-chlorthalidone 25 1 tab PO DAILY #90 tabs 11/06/23 mg tablet ursodiol 500 mg tablet See Rx Instructions .Route 12/16/23 .COMPLEX #270 tabs pen needle, diabetic 31 gauge x #1,200 ea 12/23/2309/24 (BD Ultra-Fine Short Pen Needle) tolterodine 2 mg tablet 2 mg PO BEDTIME #90 tabs 04/05/24 insulin glargine 100 unit/mL (3 100 unit SUBCUT DAILY #100 mL 04/12/24 mL) subcutaneous pen (Basaglar KwikPen U-100 Insulin) levothyroxine 112 mcg tablet 112 mcg PO DAILY #90 tabs 06/21/24 (Levoxyl) gabapentin 600 mg tablet 1,200 mg (2 x 600 mg) PO BID #360 07/14/24 tabs sertraline 50 mg tablet 50 mg PO DAILY #90 tabs 08/04/24 atorvastatin 20 mg tablet (Lipitor) 20 mg PO HS #90 tabs 08/05/24 Allergies Allergy/AdvReac Type Severity Reaction Status Date / Time venom-honey bee Allergy Unknown Verified 04/05/24 15:03 [BEE VENOM (HONEY BEE)] Review of Systems <Erasmo Reeves PA-C - Last Filed: 08/31/24 14:51> Review of Systems Narrative: Elevated blood pressure reading at home Constitutional Constitutional: Denies chills, Denies fatigue, Denies fever(s), Denies frequent falls, Denies lethargy and Denies weakness Eyes Eyes: Denies change in vision, Denies eye discharge, Denies irritation and Denies loss of vision ENT Ears, Nose, Mouth, and Throat: Denies change in voice, Denies dizziness, Denies neck pain, Denies sore throat and Denies throat swelling Cardiovascular Cardiovascular: Denies chest pain, Denies irregular heart rhythm, Denies lightheadedness, Denies palpitations, Denies dyspnea, Denies dyspnea on exertion and Denies orthopnea Respiratory Respiratory: Denies cough, Denies dyspnea, Denies dyspnea on exertion and Denies wheezing Gastrointestinal Gastrointestinal: Denies abdominal pain, Denies change in bowel habits, Denies diarrhea, Denies nausea and Denies vomiting Musculoskeletal Musculoskeletal: Denies neck pain and Denies numbness Integumentary/Breasts Skin/Breast: Denies pruritus, Denies erythema, Denies rash and Denies wounds Neurologic Neurologic: Denies behavioral changes, Denies confusion, Denies dizziness, Denies frequent falls, Denies loss of vision, Denies numbness and Denies weakness Psychiatric Psychiatric: Denies anxiety, Denies behavioral changes, Denies confusion, Denies depression, Denies homicidal ideation and Denies suicidal ideation Endocrine Endocrine: Denies fatigue, Denies flushing and Denies palpitations Hematologic/Lymphatic Hematologic/Lymphatic: Denies easy bruising Allergic/Immunologic Allergic/Immunologic: Denies urticaria, Denies throat swelling and Denies wheezing Patient History <Erasmo Reeves PA-C - Last Filed: 08/31/24 14:51> Medical History Urinary incontinence History of tongue cancer History of renal cell cancer Vitamin D deficiency Chronic gout, unspecified, 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 Stage 3b chronic kidney disease (CKD) History of colon polyps Obesity (BMI 30-39.9) Do not resuscitate Primary osteoarthritis of left knee Depression, recurrent Acquired hypothyroidism Mixed hyperlipidemia Essential hypertension Polyneuropathy, unspecified Type 2 diabetes mellitus with polyneuropathy Breast cancer Surgical History Status post placement of cardiac pacemaker History of nephrectomy Social History Smoking Status: Never smoker Smoking Status: Never smoker alcohol intake frequency: holidays/special occasions only Exam <Erasmo Reeves PA-C - Last Filed: 08/31/24 14:51> Narrative Exam Narrative: Const General:?cooperative, healthy appearing and comfortable [facility] Head:?normal to inspection Ears:?hearing grossly normal bilaterally Nose:?external nose normal Face and sinus:?normal facial exam and sinuses nontender Mouth:?oral mucosae normal Throat:?posterior oropharynx normal Eyes General:?appearance normal, both eyes and all related structures Neck Neck:?normal visual inspection and no lymphadenopathy noted Resp Effort & Inspection:?normal respiratory effort Auscultation:?clear to auscultation bilaterally Cardio Rate:?regular rate Rhythm:?regular rhythm Neuro General:?patient alert, patient awake and patient oriented x3 Initial Vital Signs Initial Vital Signs: Vital Signs Temperature 97.9 F 08/30/24 15:17 Pulse Rate 99 H 08/30/24 15:17 Respiratory Rate 18 08/30/24 15:17 Blood Pressure 165/89 H 08/30/24 15:17 Pulse Oximetry 95 08/30/24 15:17 Oxygen Delivery Method Room Air 08/30/24 15:17 <Evelyn Villa DO - Last Filed: 08/31/24 18:22> Initial Vital Signs Initial Vital Signs: Vital Signs Temperature 97.9 F 08/30/24 15:17 Pulse Rate 99 H 08/30/24 15:17 Respiratory Rate 18 08/30/24 15:17 Blood Pressure 165/89 H 08/30/24 15:17 Pulse Oximetry 95 08/30/24 15:17 Oxygen Delivery Method Room Air 08/30/24 15:17 Course <Erasmo Reeves PA-C - Last Filed: 08/31/24 14:51> Orders Ordered: ED Orders 08/30/24 15:25 XR chest 1V Stat EKG-12 Lead Stat 08/30/24 15:45 Complete Blood Count AUTO DIFF Stat Comprehensive Metabolic Panel Stat Lipase Stat Magnesium Stat NT-proBNP (BNP-Adult 18+) Stat PTT Partial Thromboplastin Khanh Stat Prothrombin Time INR Stat Troponin & CK Cardiac Panel Stat Vital Signs Vital signs: Vital Signs - 8 hr 08/30/24 15:17 08/30/24 16:34 Temperature 97.9 F Pulse Rate 99 H 74 Respiratory Rate 18 19 Blood Pressure 165/89 H 168/69 H Pulse Oximetry 95 98 Oxygen Delivery Method Room Air Room Air <Evelyn Villa DO - Last Filed: 08/31/24 18:22> Orders Ordered: ED Orders 08/30/24 15:25 XR chest 1V Stat EKG-12 Lead Stat 08/30/24 15:45 Complete Blood Count AUTO DIFF Stat Comprehensive Metabolic Panel Stat Lipase Stat Magnesium Stat NT-proBNP (BNP-Adult 18+) Stat PTT Partial Thromboplastin Khanh Stat Prothrombin Time INR Stat Troponin & CK Cardiac Panel Stat Vital Signs Vital signs: Vital Signs - 8 hr 08/30/24 15:17 08/30/24 16:34 Temperature 97.9 F Pulse Rate 99 H 74 Respiratory Rate 18 19 Blood Pressure 165/89 H 168/69 H Pulse Oximetry 95 98 Oxygen Delivery Method Room Air Room Air Medical Decision Making <CHRISTIAN Mcdonald Last Filed: 08/31/24 14:51> Lab Data 08/30/24 15:45 08/30/24 15:45 Labs: Lab Results 08/30/24 Range/Units 15:45 WBC 6.6 (4.5-11.0) X10^3/uL RBC 4.65 (4.0-5.2) X10^6/uL Hgb 13.6 (12.0-16.0) g/dL Hct 41.1 (36-46) % MCV 88.4 (80-100) fL MCH 29.3 (26-34) PG MCHC 33.1 (30-36) % RDW 14.4 (11.6-14.8) % Plt Count 188 (150-400) X10^3/uL Neut % (Auto) 67.9 (50-75) % Lymph % (Auto) 21.6 L (25-40) % Traverse % (Auto) 7.7 (3-14) % Eos % (Auto) 2.1 (2-4) % Baso % (Auto) 0.7 (0-2) % Neut # (Auto) 4500 (7188-7955) /uL Lymph # (Auto) 1400 (6349-3660) /uL Traverse # (Auto) 500 (0-900) /uL Eos # (Auto) 100 (0-450) /uL Baso # (Auto) 0 (0-100) /uL PT 11.2 (9.4-12.5) SECONDS INR 1.0 (0.9-1.3) APTT 38 H (25.1-36.5) SECONDS Sodium 137 (137-145) mmol/L Potassium 4.5 (3.4-5.1) mmol/L Chloride 103 (98-107) mmol/L Carbon Dioxide 22 (22-32) mmol/L BUN 31 H (7-17) mg/dL Creatinine 1.27 H (0.52-1.04) mg/dL Estimated GFR 42 L (>60) mL/min BUN/Creatinine Ratio 24.4 H (6-22) Glucose 217 H (80-110) mg/dL Calcium 9.6 (8.4-10.2) mg/dL Magnesium 1.8 (1.6-2.3) mg/dL Total Bilirubin 0.9 (0.2-1.3) mg/dL AST 34 (14-36) IU/L ALT 22 (<35) IU/L Alkaline Phosphatase 136 H (38-126) U/L Total Creatine Kinase 56 (30-135) U/L Troponin I 0.012 (0.01-0.034) ng/mL NT-Pro-B Natriuret Pep 644 H (<450) pg/mL Total Protein 8.5 H (6.3-8.2) g/dL Albumin 4.2 (3.5-5.0) g/dL Globulin 4.3 H (1.7-4.1) g/dL Albumin/Globulin Ratio 1.0 (1.0-2.8) Lipase 90 (23-300) U/L MDM Narrative Medical decision making narrative: 83-year-old female with past medical history hypertension, type 2 diabetes, hyperlipidemia, hypothyroidism, CKD, status post nephrectomy from renal cell carcinoma, depression, osteoarthritis presents to the ED status post a elevated blood pressure reading taken at home. In the ED, patient's blood pressure was measured at 168/69. ACS workup was obtained with labs significant for a creatinine of 1.27, glucose 217. Patient does have CKD, the elevated creatinine is baseline. BNP and troponin within normal limits. EKG is atrial paced rhythm with prolonged AV conduction. Right bundle-branch block. No acute ST-T elevations. Chest x-ray without acute cardiopulmonary pathology. Counseled patient to restart the blood pressure medication. Recommend follow-up with her PCP Dr. Esposito. Recommend buying an appropriately-sized blood pressure cuff for home readings. ED return precautions were discussed with patient and patient's daughter. They verbalized understanding. Medical records reviewed: Yes <Evelyn Villa DO - Last Filed: 08/31/24 18:22> Lab Data Labs: Lab Results 08/30/24 Range/Units 15:45 WBC 6.6 (4.5-11.0) X10^3/uL RBC 4.65 (4.0-5.2) X10^6/uL Hgb 13.6 (12.0-16.0) g/dL Hct 41.1 (36-46) % MCV 88.4 (80-100) fL MCH 29.3 (26-34) PG MCHC 33.1 (30-36) % RDW 14.4 (11.6-14.8) % Plt Count 188 (150-400) X10^3/uL Neut % (Auto) 67.9 (50-75) % Lymph % (Auto) 21.6 L (25-40) % Traverse % (Auto) 7.7 (3-14) % Eos % (Auto) 2.1 (2-4) % Baso % (Auto) 0.7 (0-2) % Neut # (Auto) 4500 (1127-4441) /uL Lymph # (Auto) 1400 (4768-2871) /uL Traverse # (Auto) 500 (0-900) /uL Eos # (Auto) 100 (0-450) /uL Baso # (Auto) 0 (0-100) /uL PT 11.2 (9.4-12.5) SECONDS INR 1.0 (0.9-1.3) APTT 38 H (25.1-36.5) SECONDS Sodium 137 (137-145) mmol/L Potassium 4.5 (3.4-5.1) mmol/L Chloride 103 (98-107) mmol/L Carbon Dioxide 22 (22-32) mmol/L BUN 31 H (7-17) mg/dL Creatinine 1.27 H (0.52-1.04) mg/dL Estimated GFR 42 L (>60) mL/min BUN/Creatinine Ratio 24.4 H (6-22) Glucose 217 H (80-110) mg/dL Calcium 9.6 (8.4-10.2) mg/dL Magnesium 1.8 (1.6-2.3) mg/dL Total Bilirubin 0.9 (0.2-1.3) mg/dL AST 34 (14-36) IU/L ALT 22 (<35) IU/L Alkaline Phosphatase 136 H (38-126) U/L Total Creatine Kinase 56 (30-135) U/L Troponin I 0.012 (0.01-0.034) ng/mL NT-Pro-B Natriuret Pep 644 H (<450) pg/mL Total Protein 8.5 H (6.3-8.2) g/dL Albumin 4.2 (3.5-5.0) g/dL Globulin 4.3 H (1.7-4.1) g/dL Albumin/Globulin Ratio 1.0 (1.0-2.8) Lipase 90 (23-300) U/L Discharge Plan Departure Patient Disposition: Home Clinical Impression: Elevated blood pressure reading Instructions: DI for High Blood Pressure Activity Restrictions/Additional Instructions: You were seen in the emergency department for an elevated home blood pressure reading. In the ED, your blood pressure was 168/69. While this is elevated, there is no need for any emergent intervention other than you resuming your blood pressure medications. It appears you have been prescribed atenolol with chlorthalidone. Please restart that medication, keep a daily blood pressure log, see your PCP for a blood pressure review. Return to the ED if you have any worsening symptoms such as chest pain, shortness of breath. Prescriptions: No Action insulin aspart U-100 [Novolog FlexPen U-100 Insulin] 100 unit/mL (3 mL) insulin pen 13 unit SUBCUT DAILY Qty: 45 3RF atenolol-chlorthalidone 50-25 mg tablet 1 tab PO DAILY Qty: 90 1RF Rx Instructions: APPT/YEARLY DUE WITH PCP IN 03/2024. PLEASE CALL TO SCHEDULE BEFORE END OF RX/FUTURE FILLS. THANK YOU 11/06/23 anastrozole 1 mg tablet 1 mg PO DAILY Qty: 90 1RF Rx Instructions: APPT/YEARLY DUE WITH PCP IN 03/2024. PLEASE CALL TO SCHEDULE BEFORE END OF RX/FUTURE FILLS. THANK YOU 11/06/23 ursodiol 500 mg tablet See Rx Instructions .ROUTE .COMPLEX Qty: 270 3RF Dose Instruction: TAKE ONE TABLET BY MOUTH THREE TIMES DAILY Rx Instructions: TAKE ONE TABLET BY MOUTH THREE TIMES DAILY (DME) pen needle, diabetic [BD Ultra-Fine Short Pen Needle] 31 gauge x 5/16 needle See Rx Instructions .ROUTE .COMPLEX Qty: 1200 1RF Dose Instruction: USE THREE TIMES DAILY FOR INSULIN INJECTIONS Rx Instructions: USE THREE TIMES DAILY FOR INSULIN INJECTIONS Basaglar KwikPen U-100 Insulin 100 unit/mL (3 mL) insulin pen 100 unit SUBCUT DAILY Qty: 100 3RF levothyroxine [Levoxyl] 112 mcg tablet 112 mcg PO DAILY Qty: 90 3RF gabapentin 600 mg tablet 1,200 mg PO BID Qty: 360 3RF Patient Comments: TAKE TWO TABLETS BY MOUTH TWICE DAILY sertraline 50 mg tablet 50 mg PO DAILY Qty: 90 0RF Patient Comments: TAKE ONE TABLET BY MOUTH ONE TIME DAILY atorvastatin [Lipitor] 20 mg tablet 20 mg PO HS Qty: 90 3RF (DME) Dexcom G6 Nuclear Waste Process Operator Misc See Rx Instructions .Route Qty: 1 0RF Rx Instructions: As directed (DME) Dexcom G6 Transmitter Device See Rx Instructions .Route Qty: 1 0RF Rx Instructions: As directed (DME) Dexcom G6 Sensor Device See Rx Instructions .Route Qty: 9 3RF Rx Instructions: As directed every 10 days. tolterodine 2 mg tablet 2 mg PO BEDTIME Qty: 90 3RF Referrals: Tristan Esposito MD [Primary Care Provider] - Stand Alone Forms: Patient Portal/API/Survey ED Sign-out <Evelyn Villa DO - Last Filed: 08/31/24 18:22> Cosign ED Attending Cosignature Attestation: I was immediately available in the department for consultation.
== END 2024-08-30 16:52 | disposition home or self-care (01) ==
PROVIDERS: Emergency Medicine; Emergency Provider Student in an Organized Health Care Education/Training Program; Family Provider Internal Medicine; PCP Internal Medicine
DX: I12.9 Hypertensive chronic kidney disease with stage 1 through stage 4 chronic kidney disease, or unspecified chronic kidney disease (principal); N18.9 Chronic kidney disease, unspecified; I45.10 Unspecified right bundle-branch block
CPT/HCPCS: 71045; 80053; 82550; 83690; 83735; 83880; 84484; 85025; 85610; 85730; 93005; 93010; 99283; 99284